=== PATIENT | female | born 2005 | race Caucasian/White ===

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

== ENCOUNTER 2024-10-19 18:14 | Emergency (ER) | payer SELFPAY ==
--- OUTSIDE RECORDS SUMMARY | 2014-10-25 05:40 | XMS_ITS | Continuity of Care Document ---
Author Organization [facility] [employer] Address [address] [facility] [address] [address] [place] [address] Phone Care Team Providers Care Pet Trainer Name Role Phone Unavailable Unavailable Unavailable Advance Directives Directive Yes / No Effective Date File Name No Information Encounters Encounter Description Practice Location Reason(s) For Visit Diagnoses Date Provider Providers Copied on Encounter [facility] [address] [place] [address], [address], [place] tel:[phone] [facility] No Information No Information Family History Family Member Type Diagnosis Age At Onset Maternal Uncle Problem (finding) Diabetes Mellitus Maternal Grandfather Problem (finding) Coronary artery disease, premature Mother Problem (finding) Diabetes Mellitus Problem (finding) No family history of Alcantara dden Maternal Grandfather Problem (finding) Diabetes Mellit us Problem (finding) No family history of Ar rhythmia Sister Problem (finding) Congenital Heart Diseas e Maternal Aunt Problem (finding) Diabetes Mellitus Problem (finding) No family history of Hy pertension Problem (finding) No family hist ory of Cardiomyopathy - hypertrophic Problem (finding) No family hist ory of Cardiomyopathy - dilated Payers Payer name Insurance type Covered constitution party ID Authoriza tion(s) [facility] INDEMNITY [id number] Social History Type Description Quantity Date Captured Comments Alcohol Use Details Unknown Caffeine Use Details Unknown Tobacco Use Status No Information Smoking Status Never smoker Sex Female Vital Signs Date / Time: Height Weight BMI Pulse Rate Blood Pressure Temperature Respiratory Rate Body Surface Area Head Circumference BMI percentile Pulse Ox Inhaled Ox 11:32 AM 48.00 in 23.768 kg (52.40 lbs) 16.0 0 kg/m eter (2) 80 /min 20 /min 0.90 meter(2) 33 Chief Complaint And Reason For Visit No Information History Of Present Illness Encounter Date Complaint History Of Prese nt Illness No Information Instructions Date Instruction Additional Infor mation No Information Assessments Type Assessment Date No Information
[2020-04-25 15:12] VITALS: BP 105/65; BMI 18.8
[2024-10-19 18:15] VITALS: BP 111/69; PULSE 87; RESP 16; TEMP 36.8; O2SAT 100
--- NOTE | 2024-10-19 18:25 | CTR_ITS ---
PROCEDURE INFORMATION: Exam: CT Abdomen And Pelvis With Contrast Exam date and time: 10/19/2024 7:31 PM Age: 19 years old Clinical indication: Abdominal pain; Localized; Left lower quadrant (llq); Additional info: Llq abd pain TECHNIQUE: Imaging protocol: Computed tomography of the abdomen and pelvis with contrast. Radiation optimization: All CT scans at this facility use at least one of these dose optimization techniques: automated exposure control; mA and/or kV adjustment per patient size (includes targeted exams where dose is matched to clinical indication); or iterative reconstruction. Contrast material: OMNIPAQUE 350; Contrast volume: 100 ml; Contrast route: INTRAVENOUS (IV); COMPARISON: No relevant prior studies available. RADIATION DOSE METRICS: Total DLP (mGy-cm): 380.03 FINDINGS: Liver: No discrete liver lesions are apparent. Smooth hepatic contour. Gallbladder and biliary ducts: No gallbladder distension or inflammation. No calcified gallstones are apparent. No common bile duct abnormality is evident. Pancreas: No evidence of pancreatitis. No ductal dilation. Spleen: Spleen is within normal limits. Adrenal glands: Adrenal glands are within expected limits. Kidneys and ureters: No renal or ureteral calculi are identified. No hydronephrosis. Stomach and bowel: Focally inflamed bowel loops in the right lower quadrant near the right adnexa. Given its appearance, right hydrosalpinx could also have a similar appearance and would be difficult to discern from the inflamed adjacent bowel. Mild hyperemia and inflammation of the sigmoid colon as it passes through this region as well. Overall no evidence of bowel obstruction. Appendix: No evidence of appendicitis. Intraperitoneal space: No free air. No significant fluid collection. Vasculature: No abdominal aortic aneurysm. Lymph nodes: No pathologically enlarged lymph nodes by CT size criteria. Urinary bladder: Unremarkable as visualized. Reproductive: Uterus is unremarkable. Bones/joints: No acute osseous abnormalities. Soft tissues: Unremarkable. CT/CT abdomen pelvis w con* [id number] IMPRESSION: Focal inflammation of the right lower quadrant which appears to involve some small and large bowel but is very closely associated with the right adnexa raising the possibility of hydrosalpinx as well.
--- NOTE | 2024-10-19 18:29 | W.ED.ABDPA2 ---
HPI - Abdominal Pain General: Chief Complaint: Abdominal Pain Stated Complaint: Abd/ Back Pain - Bleeding Time Seen by Provider: 10/19/24 18:17 History of Present Illness: 19-year-old female with no significant past medical history presents with one month of continuous vaginal bleeding associated with intermittent sharp lower abdominal pain that radiates to the back. She describes a palpable, mobile knot in the lower abdomen, pain worse anteriorly, and episodes severe enough to curl into a ball and cry. Usual menses begin on the first of the month and last 4?5 days; current bleeding began Sep and has been constant through October, requiring night-time pads and an entire box of tampons over two weeks. Bleeding contains clots. Pain intensity fluctuates, sometimes absent, other times severe. Denies dysuria, hematuria (other than menstrual clots), flank pain, or right-sided pain. Home urine test negative; last intercourse April with condom. No prior similar episodes. No reported fevers, gastrointestinal symptoms, or urinary symptoms. Reports only three lifetime hospital visits and generally avoids medical care. Arrived by EMS without prehospital analgesia. Related Data Previous Rx's ?Medication ?Instructions ?Recorded DME: Walker #1 ea 08/27/23 ciprofloxacin HCl 500 mg tablet 500 mg PO BID 5 days #10 tabs 10/29/23 amoxicillin 875 mg tablet 875 mg PO BID 10 days #20 tabs 11/28/23 ibuprofen 600 mg tablet 600 mg PO Q8H PRN pain #30 tabs 11/28/23 doxycycline hyclate 100 mg capsule 100 mg PO BID 14 days #28 caps 10/19/24 metronidazole 500 mg tablet 500 mg PO BID 14 days #28 tabs 10/19/24 Allergies Allergy/AdvReac Type Severity Reaction Status Date / Time No Known Allergies Allergy Verified 11/28/23 11:44 [facility] ED PFS: Medical History (Updated 10/19/24 @ 23:39 by Pablo Chavarria MD) ADHD Mauri-Silver syndrome Major depression Family History Father Hypertension Grandmother Hypertension Mother Diabetes Grandfather Diabetes Grandmother Cancer Breast Mother Hepatitis C Social History Smoking and tobacco/nicotine status: never used tobacco/nicotine Second hand smoke exposure: Yes Alcohol intake: never Substance/Drug Use: never Adopted: No Do you think of yourself as: Straight/Heterosexual Current gender identity: Female Yamila/Anglican: Adventist Special yamila needs: No Agree to transfusion: Yes Female Reproductive History: Para: 0 Spontaneous abortions: No Physical Exam Const: COMMON NORMALS: no acute distress, patient oriented x3 and alert HENMT: COMMON NORMALS: normocephalic and atraumatic HEAD & SCALP: normocephalic and atraumatic Eye: COMMON NORMALS: Equal, round and reactive pupils present, EOMs intact bilaterally and no scleral icterus PUPIL: Yes Equal, round and reactive pupils present Resp: COMMON NORMALS: normal respiratory effort and No retractions Cardio: COMMON NORMALS: regular rate, regular rhythm and No murmurs present (Cardio) RATE: regular rate RHYTHM: regular rhythm GI: OTHER: Abdomen soft and nonperitoneal with mild left upper quadrant and moderate left lower quadrant tenderness. Normal bowel sounds. : OTHER: exam deferred to patient preference but admits to bleeding as per HPI which is ongoing Neuro: COMMON NORMALS: patient oriented x3 SENSORIUM/ORIENTATION: Yes alert Skin: COMMON NORMALS: no rashes or lesions noted GENERAL SKIN EXAM: no rashes or lesions noted Course Vital Signs: Vital signs: Vital Signs Temperature 98.2 F 10/19/24 18:15 Pulse Rate 84 10/20/24 00:10 Respiratory Rate 16 10/20/24 00:10 Blood Pressure 109/83 10/20/24 00:10 Pulse Oximetry 95 10/20/24 00:10 Oxygen Delivery Me thod Room Air 10/19/24 23:00 MDM - Abdominal Pain Medical Decision Making Patient remained hemodynamically stable [address] scan shows what appears to be possible right hydrosalpinx. Ultrasound was performed showing either hydro or pyosalpinx on the right. Her pain is mostly in the left adnexal region. I spoke with on-call FOREST NURSERY WORKER who recommends that given her constellation of symptoms she may be suffering from PID. FOREST NURSERY WORKER recommends empiric treatment with antibiotics and follow-up to his clinic. Patient is agreeable to the plan and received a dose of ceftriaxone as well as oral metronidazole and doxycycline as well as prescriptions for both for 14 days. She shows good understanding and agrees to the plan. GC chlamydia testing is pending at time of disposition Lab Data 10/19/24 18:21 10/19/24 18:21 Labs/Radiology: Radiology Impressions Abdomen/Pelvis CT 10/19/24 18:25 IMPRESSION: Focal inflammation of the right lower quadrant which appears to involve some small and large bowel but is very closely associated with the right adnexa raising the possibility of hydrosalpinx as well. Pelvis Ultrasound 10/19/24 22:17 IMPRESSION: Tubular structure with internal echoes about the right adnexa raising concern for possible pyosalpinx. No evidence of ovarian torsion. Laboratory Results WBC 10.20 10^3/uL (4.5-13.0) 10/19/24 18:21 RBC 3.92 10^6/uL (3.85-5.65) 10/19/24 18:21 Hgb 9.30 g/dL (12.4-14.8) L 10/19/24 18:21 Hct 31.6 % (36-47) L 10/19/24 18:21 MCV 80.6 fl (85-98) L 10/19/24 18:21 MCH 23.7 pg (27-33) L 10/19/24 18:21 MCHC 29.4 g/dL (30-55) L 10/19/24 18:21 RDW 13.5 % (12.1-15.1) 10/19/24 18:21 Plt Count 385 10^3/cmm (157-399) 10/19/24 18:21 MPV 9.2 fL (7.4-10.4) 10/19/24 18:21 Neut % (Auto) 67.1 % 10/19/24 18:21 Lymph % (Auto) 22.4 % 10/19/24 18:21 [place] % (Auto) 7.4 % 10/19/24 18:21 Eos % (Auto) 2.5 % 10/19/24 18:21 Baso % (Auto) 0.3 % 10/19/24 18:21 Neut # (Auto) 6.86 10^3/uL (1.8-8.0) 10/19/24 18:21 Lymph # (Auto) 2.3 10^3/uL (1.5-6.5) 10/19/24 18:21 [place] # (Auto) 0.8 10^3/uL (0.2-0.9) 10/19/24 18:21 Eos # (Auto) 0.3 10^3/uL (0.0-0.8) 10/19/24 18:21 Baso # (Auto) 0.0 10^3/uL (0.0-0.1) 10/19/24 18:21 Nucleated RBC % (auto) 0 % 10/19/24 18:21 Nucleated RBCs # 0.0 /100WBC 10/19/24 18:21 Sodium 138 mmol/L (136-145) 10/19/24 18:21 Potassium 4.2 mmol/L (3.5-5.1) 10/19/24 18:21 Chloride 103 mmol/L (98-107) 10/19/24 18:21 Carbon Dioxide 23 mmol/L (22-29) 10/19/24 18:21 Anion Gap 16.2 (5-19) 10/19/24 18:21 BUN 7 mg/dL (6-20) 10/19/24 18:21 Creatinine 0.4 mg/dL (0.5-0.9) L 10/19/24 18:21 GFR Calculation 203.5 mL/min (90-130) H 10/19/24 18:21 Glucose 99 mg/dL (65-115) 10/19/24 18:21 Calculated Osmolality 284 mOsm/kg (285-295) L 10/19/24 18:21 Calcium 8.6 mg/dL (8.5-10.5) 10/19/24 18:21 Total Bilirubin 0.2 mg/dL (0.15-1.2) 10/19/24 18:21 AST 9 U/L (0-32) 10/19/24 18:21 ALT < 5 U/L (0-33) 10/19/24 18:21 Alkaline Phosphatase 75 U/L (35-105) 10/19/24 18:21 Total Protein 7.3 g/dL (6.6-8.7) 10/19/24 18:21 Albumin 4.0 g/dL (3.5-5.2) 10/19/24 18:21 Globulin 3.3 g/dL (1.3-4.6) 10/19/24 18:21 Lipase 10 U/L (13-60) L 10/19/24 18:21 HCG, Qual Negative (Negative) 10/19/24 18:25 Urine Color Yellow (Yellow) 10/19/24 18:25 Urine Appearance Clear (CLEAR) 10/19/24 18:25 Urine pH 7.5 (5-7) 10/19/24 18:25 Ur Specific [place] 1.008 (1.005-1.030) 10/19/24 18:25 Urine Protein Negative (Negative) 10/19/24 18:25 Urine Glucose (UA) Negative (Normal) 10/19/24 18:25 Urine Ketones Negative (Negative) 10/19/24 18:25 Urine Blood Negative (Negative) 10/19/24 18: Urine Nitrate Negative (Negative) 10/19/24 18: Urine Bilirubin Negative (Negative) 10/19/24 18:25 Urine Urobilinogen 0.2 mg/dL (Negative) 10/19/24 18:25 Ur Leukocyte Esterase Negative (Negative) 10/19/24 18:25 Urine RBC 0-2 /hpf (0-2) 10/19/24 18:25 Urine WBC 0-5 /hpf (0-5) 10/19/24 18:25 Ur Squamous Epith Cells 0-5 /hpf (0-5) 10/19/24 18:25 Amorphous Sediment Not Reportable 10/19/24 18:25 Urine Bacteria None seen /hpf (NONE) 10/19/24 18:25 Hyaline Casts 0-4 /lpf H 10/19/24 18:25 All radiology interpretation(s) finalized by discharge Discharge Plan Discharge Patient Disposition: Home Clinical Impression: Pelvic pain Condition: Stable Prescriptions: New metronidazole 500 mg tablet 500 mg PO BID 14 Days Qty: 28 0RF doxycycline hyclate 100 mg capsule 100 mg PO BID 14 Days Qty: 28 0RF No Action ciprofloxacin HCl 500 mg tablet 500 mg PO BID 5 Days Qty: 10 0RF amoxicillin 875 mg tablet 875 mg PO BID 10 Days Qty: 20 0RF ibuprofen 600 mg tablet 600 mg PO Q8H PRN (Reason: pain) Qty: 30 0RF povidone-iodine [Betadine Swabsticks] 10 % swab 1 applic topical ONCE Qty: 1 0RF (DME) DME: Walker Unit See Rx Instructions .Route Qty: 1 0RF Rx Instructions: left cam walker Discharge Orders: Discharge ED (Routine); Ordered 10/19/24 Ordered By: Pablo Chavarria Referrals: Juana Vides NP [Primary Care Provider, Nurse Practitioner] Hardeep Sutton MD [Physician, FOREST NURSERY WORKER] - 1-3 days Referral Note: suspect PID based on US and PE Clinical Impression: Pelvic pain Discharge Diet: Usual diet Discharge Activity: Increase activity as tolerated Patient Instructions: Pelvic Inflammatory Disease (ED), Patient Portal & Fe Instructions Activity Restrictions/Additional Instructions: The on-call FOREST NURSERY WORKER physician asks that you be seen in their clinic to make sure you are getting better. He feels you are suffering from pelvic inflammatory disease and asked that I prescribe you antibiotics to treat this. Please take ibuprofen and Tylenol for pain Stand Alone Forms: Work/School Release Print Language: Bahraini Coding Level of Care Code ED Tail Board Worker for Gogo Chong
--- OUTSIDE RECORDS SUMMARY | 2024-10-19 18:29 | XMS_ITS | Encounter Summary ---
Author Organization [employer] Address [address] [place] [address] Care Team Providers Care Attorney General Name Role Phone Unavailable Primary Care Provider Unavailabl e Encounter Details Date Type Department Care Team (Late st Contact Info) Description 10/12/2024 External Device Data [facility] ABSTRACTION Provider, Abstract NO ADDRESS ON FILE Social History Tobacco Use Types Packs/Day Years Used Date Smoking Tobacco: Never Passive Smoke Exposure: Never Alcohol Use Standard Drinks/Week Comments Never 0 (1 standard drink = 0.6 oz pur e alcohol) Feeling Safe Answer Date Recorded Are you in a relationship wi th someone who hurts you emotionally and/or physically? No 04/27/2024 Comments No Sex and Gender Information Value Date Recorded Sex Assigned at Not on file Legal Sex Female 10:08 AM LINE TENDER Gender Identity Not on file Sexual Orientation Not on file documented as of this encounter Plan of Treatment Not on file documented as of this encounter Visit Diagnoses Not on filedocumented in this encounter
--- OUTSIDE RECORDS SUMMARY | 2024-10-19 18:29 | XMS_ITS | Clinical Summary ---
Author Organization [facility] Address [address] 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 ADHD (attention deficit hyperactivity disorder) 01/05/2013 Resolved Problems Problem Noted Date Diagnosed Date Resolved Date Short for age 1001/05/2013 05/05/2013 Immunizations Immunization Administration Dates Next Due (M-M-R II/PRIORIX)(12 MO UP) MEASLES, MUMPS AND RUBELLA VIRUS VACCINE, 0.5 ML IM/SUBCUT 11/06/2009,10/07/2005 (VARIVAX)(12 MOS UP)VARICELL A VIRUS VACCINE (PF) 0.5 ML, SUB CUT 11/06/2009,10/07/2005 Dt Dtp Dtap Vaccine 07/09/2007,10/07/2005,2005 HIB, Unspecified Formulation 10/07/2005,06/22/19 06 Hepatitis A Vaccine 10/06/2008,07/09/2007 Hepatitis B Vaccine 10/07/2005,06/21/2005,2004 IPV/OPV 10/07/2005,06/21/2005 Influenza Seasonal Unspecifi ed Formulation IM 01/12/2014 Pneumococcal 7-valent conjug ate vaccine IM 07/09/2007,10/07/2005,06/21/2005,2004 Social History Tobacco Use Types Packs/Day Years Used Date Smoking Tobacco: Never Assessed Comments Unknown Sex and Gender Information Value Date Recorded Sex Assigned at Not on file Legal Sex Female 3:46 AM SUPPORT SERVICE TECH Gender Identity Not on file Sexual Orientation Not on file Last Filed Vital Signs Vital Sign Reading Time Taken Comments Blood Pressure 96/58 03/09/2015 9:24 AM SUPPORT SERVICE TECH Pulse 100 03/09/2015 9:24 AM SUPPORT SERVICE TECH Temperature 36.5 C (97.7 F) 07/15/2014 7:19 AM CDT Respiratory Rate 20 07/15/2014 7:19 AM CDT Oxygen Saturation 98% 07/15/2014 7:19 AM CDT Inhaled Oxygen Concentration - - Weight 22.7 kg (50 lb) 03/09/2015 9:24 AM SUPPORT SERVICE TECH Height 124.5 cm (4' 1 ) 03/09/2015 9:24 AM SUPPORT SERVICE TECH Body Mass Index 14.64 03/09/2015 9:24 AM SUPPORT SERVICE TECH Plan of Treatment Health Maintenance Due Date Last Done Comments CHLAMYDIA SCREENING (ANNUAL) 11-24 YEARS 09/14/2015 HPV VACCINES (1 - 3-dose series) 09/14/2019 DTAP/TDAP/TD VACCINES (4 - Tdap) 09/14/2023 07/09/2007, 10/07/2005, 06/21/2005 INFLUENZA VACCINE (#1) 2024 01/12/2014 HEPATITIS B VACCINES Completed 10/07/2005, 06/21/2005, 2004 Insurance MEDICAID [place]
--- OUTSIDE RECORDS SUMMARY | 2024-10-19 18:29 | XMS_ITS | Encounter Summary ---
Author Organization [facility] Address [address] [place] [address] Care Team Providers Care Loading Machine Operator Helper Name Role Phone Unavailable Primary Care Provider Unavailabl e Encounter Details Date Type Department Care Team (Latest Contact Info) Description 02/03/2015 Ancillary Orders [facility] Imaging Services [address] 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) Social History Tobacco Use Types Packs/Day Years Used Date Smoking Tobacco: Never Assessed Comments Unknown Sex and Gender Information Value Date Recorded Sex Assigned at Not on file Legal Sex Female 3:46 AM RISK ASSESSMENT ANALYST Gender Identity Not on file Sexual Orientation Not on file documented as of this encounter Plan of Treatment Not on file documented as of this encounter Results * XR BONE AGE HAND AND WRIST (02/03/2015 12:56 PM CDT) Anatomical Region Laterality Modality Wrist / Hand Computed Radiogr aphy 02/03/2015 12:5 0 PM CDT Impressions 02/03/2015 2:24 PM CDT Impression: Skeletal maturation is delayed by approximately 1.7 standard deviations and is therefore considered to be within normal limits. Narrative 02/03/2015 2:24 PM CDT IMPRESSION - see report below. 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 Findings: The examination was personally supervised and diagnosed by Dr. Avelar prior to the time of dictation. Chronological age of the patient is 9 years 4 months. According to the standards established by Greulich and Arias, skeletal age approximates 8 years 10 months. One standard deviation for patient's chronological age is 10.8 months. Procedure Note Celestino Avelar MD - 02/03/2015 IMPRESSION - see report below. 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 Findings: The examination was personally supervised and diagnosed by Dr. Avelar prior to the time of dictation. Chronological age of the patient is 9 years 4 months. According to the standards established by Greulich and Arias, skeletal age approximates 8 years 10 months. One standard deviation for patient's chronological age is 10.8 months. IMPRESSION Impression: Skeletal maturation is delayed by approximately 1.7 standard deviations and is therefore considered to be within normal limits. 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
--- OUTSIDE RECORDS SUMMARY | 2024-10-19 18:29 | XMS_ITS | Encounter Summary ---
Author Organization [facility] Address [address] [place] [address] Care Team Providers Care Division Road Supervisor Name Role Phone Unavailable Primary Care Provider Unavailabl e Encounter Details Date Type Department Care Team (Latest Contact Info) Description 2004 Outpatient Historical [facility] Medicine [address], [place] [address] Raphael Gonzalez MD [address], [place] [id number] THRUSH (Primary Dx); Routine child health exam Social History Tobacco Use Types Packs/Day Years Used Date Smoking Tobacco: Never Assessed Comments Unknown Sex and Gender Information Value Date Recorded Sex Assigned at Not on file Legal Sex Female 3:46 AM TRIMMER HELPER Gender Identity Not on file Sexual Orientation Not on file documented as of this encounter Plan of Treatment Not on file documented as of this encounter Visit Diagnoses Diagnosis Candidiasis of mouth- Primary Routine child health exam Routine or child health check documented in this encounter
--- OUTSIDE RECORDS SUMMARY | 2024-10-19 18:29 | XMS_ITS | Clinical Summary ---
Author Organization [employer] Address [address] [facility] 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 ADHD (attention deficit hyperactivity disorder) 01/05/2013 Resolved Problems Problem Noted Date Diagnosed Date Resolved Date Short for age 1001/05/2013 05/05/2013 Encounters Date Type Department Care Team Description 10/12/2024 External Device Data [facility] ABSTRACTION Provider, Abstract 10/05/2024 External Device Data [facility] ABSTRACTION Provider, Abstract 09/22/2024 External Device Data [facility] ABSTRACTION Provider, Abstract 08/31/2024 External Device Data [facility] ABSTRACTION Provider, Abstract 08/31/2024 External Device Data [facility] ABSTRACTION Provider, Abstract 08/31/2024 External Device Data [facility] ABSTRACTION Provider, Abstract 08/26/2024 External Device Data [facility] ABSTRACTION Provider, Abstract 07/27/2024 External Device Data [facility] ABSTRACTION Provider, Abstract from Last 3 Months Immunizations Immunization Administration Dates Next Due (M-M-R [...] Smoking Tobacco: Never Passive Smoke Exposure: Never Tobacco Cessation:Counseling Given: Yes Alcohol Use Standard Drinks/Week Comments Never 0 (1 standard drink = 0.6 oz pur e alcohol) Feeling Safe Answer Date Recorded Are you in a relationship wi th someone who hurts you emotionally and/or physically? No 04/27/2024 Comments No Sex and Gender Information Value Date Recorded Sex Assigned at Not on file Legal Sex Female 10:08 AM HARDBOARD PANEL PRINTER Gender Identity Not on file Sexual Orientation Not on file Last Filed Vital Signs Vital Sign Reading Time Taken Comments Blood Pressure 120/84 04/27/2024 3:30 PM HARDBOARD PANEL PRINTER Pulse 92 04/27/2024 3:30 PM HARDBOARD PANEL PRINTER Temperature 36.9 C (98.4 F) 04/27/2024 2:56 PM HARDBOARD PANEL PRINTER Respiratory Rate 18 04/27/2024 3:30 PM HARDBOARD PANEL PRINTER Oxygen Saturation 100% 04/27/2024 3:30 PM HARDBOARD PANEL PRINTER Inhaled Oxygen Concentration - - Weight 60.5 kg (133 lb 6.4 oz) 04/27/2024 2:56 P M HARDBOARD PANEL PRINTER Height 154.9 cm (5' 1 ) 04/27/2024 2:56 PM HARDBOARD PANEL PRINTER Body Mass Index 25.21 04/27/2024 2:56 PM HARDBOARD PANEL PRINTER Plan of Treatment Health Maintenance Due Date Last Done Comments CHLAMYDIA SCREENING (ANNUAL) 11-24 YEARS 09/14/2015 HPV VACCINES (1 - 3-dose series) 09/14/2019 DTAP/TDAP/TD VACCINES (4 - Tdap) 09/14/2023 07/09/2007, 10/07/2005, 06/21/2005 INFLUENZA VACCINE (#1) 2024 03/12/2024, 2013 HEPATITIS B VACCINES Completed 10/07/2005, 06/21/2005, 2004 Insurance [facility] MEDICAID
--- OUTSIDE RECORDS SUMMARY | 2024-10-19 18:29 | XMS_ITS | Encounter Summary ---
Author Organization [facility] Address [address] [place] [address] Care Team Providers Care Industrial Relations Analyst Name Role Phone Unavailable Primary Care Provider Unavailabl e Encounter Details Date Type Department Care Team (Latest Contact Info) Description 03/09/2015 Ancillary Orders [facility] Orthopedics [facility] [address] [place] [phone] Art Thompson MD [address] [place] [address] SCFE (slipped capital femoral epiphysis), unspecified laterality (Primary Dx) Social History Tobacco Use Types Packs/Day Years Used Date Smoking Tobacco: Never Assessed Comments Unknown Sex and Gender Information Value Date Recorded Sex Assigned at Not on file Legal Sex Female 3:46 AM PLY BANDER Gender Identity Not on file Sexual Orientation Not on file documented as of this encounter Plan of Treatment Not on file documented as of this encounter Results * XR PELVIS 3+ VW (03/09/2015 9:15 AM PLY BANDER) Anatomical Region Laterality Modality Pelvis Computed Radiogr aphy Narrative 04/02/2015 10:09 PM PLY BANDER AP and frog-leg lateral of the pelvis shows that there are no significant osseous abnormalities. She has no signs of subcapital femoral epiphysis. No signs of Oyaw-Asuxh-Fptdcvc disease. No signs of other osseous abnormalities. us Art Thompson MD DIAGNOSTIC IMAGING ORDERABLES Final Result documented in this encounter Visit Diagnoses Diagnosis SCFE (slipped capital femoral epiphysis), unspecified laterality- Primary documented in this encounter
[2024-10-19 18:30] LABS: Hematocrit 31.6 % (36-47); Hemoglobin 9.30 g/dL (12.4-14.8); Mean Corpuscular HGB Conc 29.4 g/dL (30-55); Mean Corpuscular Hemoglobin 23.7 pg (27-33); Mean Corpuscular Volume 80.6 fl (85-98); Nucleated Red Blood Cells % 0 %; Platelet Count 385 10^3/cmm (157-399); Red Blood Count 3.92 10^6/uL (3.85-5.65); White Blood Count 10.20 10^3/uL (4.5-13.0)
[2024-10-19 18:44] LABS: Glucose Urine UA Negative (Normal); Nitrate Urine Negative (Negative); Specific Gravity, Urine 1.008 (1.005-1.030)
[2024-10-19 18:49] LABS: Add Urine Microscopic? YES
[2024-10-19 18:50] LABS: Alanine Aminotransferase < 5 U/L (0-33); Albumin Level 4.0 g/dL (3.5-5.2); Alkaline Phosphatase 75 U/L (35-105); Anion Gap 16.2 (5-19); Aspartate Amino Transferase 9 U/L (0-32); Blood Urea Nitrogen 7 mg/dL (6-20); Calcium 8.6 mg/dL (8.5-10.5); Carbon Dioxide 23 mmol/L (22-29); Chloride 103 mmol/L (98-107); Creatinine Clr Calc Pharmacy 186.3965; Globulin 3.3 g/dL (1.3-4.6); Glucose 99 mg/dL (65-115); Lipase 10 U/L (13-60); Osmolality Calculated 284 mOsm/kg (285-295); Potassium 4.2 mmol/L (3.5-5.1); Sodium 138 mmol/L (136-145); Total Protein 7.3 g/dL (6.6-8.7)
[2024-10-19 19:03] VITALS: BP 111/69; PULSE 88; RESP 16; O2SAT 97
[2024-10-19 19:19] LABS: HCG Qualitative Urine. Negative (Negative)
[2024-10-19] MEDS: iohexol 350 mg/mL 500 mL Btl (per mL) IV (19:34)
[2024-10-19 20:00] VITALS: BP 110/58; PULSE 88; RESP 16; O2SAT 99
[2024-10-19 21:00] VITALS: BP 119/53; PULSE 79; RESP 16; O2SAT 98
[2024-10-19 22:00] VITALS: BP 127/80; PULSE 84; RESP 16; O2SAT 93
--- NOTE | 2024-10-19 22:17 | USR_ITS ---
PROCEDURE INFORMATION: Exam: US Pelvis, Complete, Non-Obstetric Exam date and time: 10/19/2024 10:24 PM Age: 19 years old Clinical indication: Pelvic pain; Additional info: Left adnexal pain TECHNIQUE: Imaging protocol: Transabdominal pelvic nonobstetric ultrasound. Complete exam. Real time ultrasound with image documentation. COMPARISON: CT abdomen pelvis w con* [id number] 10/19/2024 7:31 PM FINDINGS: Uterus: The uterus measures 6.2 x 4.4 x 5.2 cm with normal endometrial thickness of 9 mm. Cervix unremarkable. Right ovary/adnexa: Right ovary measures 4.5 x 2.9 x 3.9 cm with no torsion. There are a few follicular cysts noted, largest measuring 2.2 cm. In the right adnexal region there is a tubular structure with internal echoes that is indeterminate. Left ovary/adnexa: Left ovary measures 3.5 x 1.6 x 2.5 cm with normal vascular flow. No mass. No torsion. Intraperitoneal space: No intraperitoneal fluid. Urinary bladder: Normal. US/US pelvic complete* [id number] IMPRESSION: Tubular structure with internal echoes about the right adnexa raising concern for possible pyosalpinx. No evidence of ovarian torsion.
[2024-10-19 23:00] VITALS: BP 112/80; PULSE 84; RESP 16; O2SAT 99
[2024-10-19] MEDS: cefTRIAXone 1,000 mg SDV 1000 MG IVP (23:46)
[2024-10-20 00:10] VITALS: BP 109/83; PULSE 84; RESP 16; O2SAT 95
[2024-10-20 01:07] LABS: Neisseria Gonorrhea NOT DETECTED (Negative)
== END 2024-10-20 00:12 | disposition home or self-care (01) ==
PROVIDERS: Emergency Provider Student in an Organized Health Care Education/Training Program; PCP Nurse Practitioner Family
DX: R10.2 Pelvic and perineal pain (principal)
CPT/HCPCS: 36415; 74177; 76856; 80053; 81001; 81025; 83690; 85025; 87491; 87591; 96374; 96375; 99285; J0696; J1885; J9999

== ENCOUNTER 2025-01-24 20:24 | Emergency (ER) | payer SELFPAY ==
[2020-04-25 15:12] VITALS: BP 105/65; BMI 18.8
--- OUTSIDE RECORDS SUMMARY | 2025-01-24 20:30 | XMS_ITS | Clinical Summary ---
Author Organization [facility] Address [address] Rodrigezn: Epic Prelude ADT ZENY GRACE [address] Care Team Providers Care Cardroom Drawing Runner Name Role Phone Unavailable Primary Care Provider [...] Encounters Date Type Department Care Team Description 12/07/2024 External Device Data [facility] ABSTRACTION Provider, Abstract 11/23/2024 External Device Data [facility] ABSTRACTION Provider, Abstract 11/23/2024 External Device Data [facility] ABSTRACTION Provider, Abstract 11/10/2024 External Device Data [facility]STRACTION Provider, Abstract [...] on file Legal Sex Female 10:08 AM MACHINE HOSTLER Gender Identity Not on file Sexual Orientation Not on file Last Filed Vital Signs Vital Sign Reading Time Taken Comments Blood Pressure 120/84 04/27/2024 3:30 PM MACHINE HOSTLER Pulse 92 04/27/2024 3:30 PM MACHINE HOSTLER Temperature 36.9 C (98.4 F) 04/27/2024 2:56 PM MACHINE HOSTLER Respiratory Rate 18 04/27/2024 3:30 PM MACHINE HOSTLER Oxygen Saturation 100% 04/27/2024 3:30 PM MACHINE HOSTLER Inhaled Oxygen Concentration - - Weight 60.5 kg (133 lb 6.4 oz) 04/27/2024 2:56 P M MACHINE HOSTLER Height 154.9 cm (5' 1 ) 04/27/2024 2:56 PM MACHINE HOSTLER Body Mass Index 25.21 04/27/2024 2:56 PM MACHINE HOSTLER Plan of Treatment Health Maintenance Due Date Last Done Comments CHLAMYDIA SCREENING (ANNUAL) 11-24 YEARS 09/14/2015 HPV VACCINES (1 - 3-dose series) 09/14/2019 DTAP/TDAP/TD VACCINES (4 - Tdap) 09/14/2023 07/09/2007, 10/07/2005, 06/21/2005 INFLUENZA VACCINE (#1) 2024 01/12/2014 HEPATITIS B VACCINES Completed 10/07/2005, 06/21/2005, 2004 Insurance [facility] Prad[facility] [place] [id number] [facility] [facility] MEDICAID
[2025-01-24 20:34] VITALS: BP 111/72; PULSE 77; RESP 16; TEMP 36.7; O2SAT 96; BMI 25.9
[2025-01-24 21:52] VITALS: BP 105/82; O2SAT 97
--- NOTE | 2025-01-24 22:00 | ED_ITS ---
HPI - Female Genitourinary General: Chief complaint: Vaginal Bleeding Stated complaint: possible miscarriage Time Seen by Provider: 01/24/25 21:44 Source: patient Mode of arrival: ambulatory Limitations: no limitations History of Present Illness: Patient is a 19-year-old female here in the emergency department requesting something for pelvic pain/cramping from what she believes is a carriage. Neftaly simon states she is approximately 8 weeks with twins. She states this was confirmed with ultrasound imaging approximately 2 weeks ago which did show a live intrauterine . She states she is following up with her OB provider in [place]. She states today she began having vaginal bleeding and passed what she visualized to be the fetus . Patient states she was having significant pelvic cramping which has eased off at time of my examination with patient. She reportedly contacted her OB in [place] who is planning on seeing her tomorrow at 9 AM for ultrasound, labs, pelvic exam. Patient states she is here requesting something for pain. She does not want further emergency department workup today. MD elicited complaint: vaginal bleeding and possible miscarriage Onset (ago): hour(s) Severity: moderate Quality of pain: cramping Consistency: intermittent Vaginal discharge: none Vaginal bleeding: moderate, clots and POC/tissue Exacerbating factors: none Relieving factors: none Associated symptoms: Reports no associated symptoms Treatment prior to arrival: none Patient : Yes Related Data Previous Rx's ?Medication ?Instructions ?Recorded DME: Walker #1 ea 08/27/23 ciprofloxacin HCl 500 mg tablet 500 mg PO BID 5 days # 10 tabs 10/29/23 amoxicillin 875 mg tablet 875 mg PO BID 10 days #20 ta bs 11/28/23 ibuprofen 600 mg tablet 600 mg PO Q8H PRN pain #30 t abs 11/28/23 Allergies Allergy/AdvReac Type Severity Reaction Status Date / Time No Known Allergies Allergy Verified 11/28/23 11:44 Review of Systems : Reports: vaginal bleeding and pelvic pain; Denies: flank pain, difficulty voiding, dysuria, urinary frequency or urinary urgency Neuro: Denies: dizziness PFSH ED PFSH: Medical History ADHD Mauri-Silver syndrome Major depression Family History Father Hypertension Grandmother Hypertension Mother Diabetes Grandfather Diabetes Grandmother Cancer Breast Mother Hepatitis C Social History Smoking and tobacco/nicotine status: never used tobacco/nicotine Second hand smoke exposure: Yes Alcohol intake: never Substance/Drug Use: never Adopted: No Do you think of yourself as: Straight/Heterosexual Current gender identity: Female Yamila/Confucianist: Cheondoism Special yamila needs: No Agree to transfusion: Yes Female Reproductive History: Para: 0 Spontaneous abortions: No Physical Exam Const: COMMON NORMALS: no acute distress, average body habitus, no l imitations, healthy appearing, alert and well nourished GI: COMMON NORMALS: Normal to inspection, nondistended, normoactive bowel sounds present, Soft to palpation and non-tender PALPATION: Yes Soft to palpation : COMMON NORMALS: Yes no CVA tenderness BLADDER/KIDNEY EXAM: Yes no CVA tenderness OTHER: pt deferred Back/Pelvis: COMMON NORMALS: no CVA tenderness Neuro: SENSORIUM/ORIENTATION: Yes alert Course Vital Signs: Vital signs: Vital Signs Temperature 98.0 F 01/24/25 20:34 Pulse Rate 80 01/24/25 22:19 Respiratory Rate 17 01/24/25 22:19 Blood Pressure 121/54 01/24/25 22:19 Pulse Oximetry 97 01/24/25 22:19 Oxygen Delivery Me thod Room Air 01/24/25 21:52 MDM - Female Medical Decision Making Patient is not wishing to pursue any workup in the emergency department today. She request something for pain while here in the ED. Hydrocodone was ordered for her prior to discharge. Patient feels comfortable following up with her OB provider at 9 AM in the morning where she is scheduled to have ultrasound imaging, pelvic exam, and labs performed. Patient was instructed to return to the emergency department for worsening pain, severe vaginal bleeding, or any other concerns she may have. Differential Diagnosis Likely abdominal pain Medical Records I reviewed the patient's medical records. XR interpretation done by ED provider, pending radiology final review Discharge Plan Discharge Patient Disposition: Home Clinical Impression: Miscarriage Condition: Stable Prescriptions: No Action ciprofloxacin HCl 500 mg tablet 500 mg PO BID 5 Days Qty: 10 0RF amoxicillin 875 mg tablet 875 mg PO BID 10 Days Qty: 20 0RF ibuprofen 600 mg tablet 600 mg PO Q8H PRN (Reason: pain) Qty: 30 0RF povidone-iodine [Betadine Swabsticks] 10 % swab 1 applic topical ONCE Qty: 1 0RF (DME) DME: Walker Unit See Rx Instructions .Route Qty: 1 0RF Rx Instructions: left cam walker Discharge Orders: Discharge ED (Routine); Ordered 01/24/25 Ordered By: Nay Botello Referrals: Juana Vides NP [Primary Care Provider, Nurse Practitioner] Patient Instructions: Patient Portal & Fe Instructions Activity Restrictions/Additional Instructions: Please follow-up with your OB provider at 9 AM in the morning as scheduled. Print Language: Australian Coding Level of Care Code ED Assistant Quality Manager for Gogo Chong
[2025-01-24] MEDS: HYDROcodone-acetaminophen 5-325 mg Tablet 1 TAB PO (22:17)
[2025-01-24 22:19] VITALS: BP 121/54; PULSE 80; RESP 17; O2SAT 97
== END 2025-01-24 22:20 | disposition home or self-care (01) ==
PROVIDERS: Emergency Provider Physician Assistant; PCP Nurse Practitioner Family
DX: O03.9 Complete or unspecified spontaneous abortion without complication (principal)
CPT/HCPCS: 99283; J9999